=== PATIENT | male | born 1960 | race Caucasian/White ===

== ENCOUNTER 2023-12-19 07:13 | Inpatient (IN) | payer MEDICARE, MEDICAID ==
[~2023-12-19] VITALS: Ht 177.8 cm; Wt 65.0 kg
[2023-12-19 08:30] VITALS: BP 138/82; PULSE 79; TEMP 98.9
[2023-12-19] MEDS ORDERED: LIPITOR 10MG10 MG PO (08:43)
[2023-12-19] MEDS ORDERED: ZESTRIL 20MG TA20 MG PO (08:44)
[2023-12-19] MEDS ORDERED: NAMENDA5 MG PO (08:45)
[2023-12-19] MEDS ORDERED: ONE DAILY ESSE0.5 MG PO (08:47)
[2023-12-19] MEDS ORDERED: THIAMINE 1100 MG/TAB PO (08:47)
[2023-12-19] MEDS ORDERED: REMERON 15M15 MG/TA1 PO (08:55)
[2023-12-19] MEDS ORDERED: RISPERDAL 0.5M0.5 MG PO (08:55)
[2023-12-19] MEDS ORDERED: ANTI-DIARRHEAL2 MG PO (08:57)
[2023-12-19] MEDS ORDERED: ATIVAN 0.50.5 MG/TAB PO (08:59)
[2023-12-19] MEDS ORDERED: VALIUM 2MG T2 MG/TAB PO (08:59)
[2023-12-19] MEDS ORDERED: Acetaminophen 325 MG TAB PO PRN (09:00)
[2023-12-19] MEDS ORDERED: Ondansetron 4 MG/2 ML VIAL IV PRN (09:00)
[2023-12-19] MEDS ORDERED: Polyethylene Glycol 3350 17 GM PDS PO PRN (09:00)
[2023-12-19] MEDS ORDERED: GOOD NEIGH1200 MG/15 PO (09:00)
[2023-12-19] MEDS ORDERED: Docusate Sodium 100 MG CAP PO PRN (09:00)
[2023-12-19] MEDS ORDERED: TYLENOL 325MG325 MG PO (09:01)
[2023-12-19] MEDS ORDERED: LATUDA40 MG PO (09:10)
[2023-12-19] MEDS ORDERED: OLANZapine 2.5 MG,Water For Injection,Sterile 0.5 ML IM PRN (09:15)
--- NOTE | 2023-12-19 09:32 | NUR ---
Pt arrived to ICU 5 via EMS at 0808. Pt attached to critical care monitors. Pt is confused. He knows his name and states that he is in [place]. Pt does not answer any other questions. Pt is picking at lines, educated to leave alone, pt easily redirected at this time. Vital signs are stable. Exteranl male catheter placed. Pt placed in yellow gown and socks. Pt has abrasion to top of head and to bridge of nose. Bed alarm activated. Call light within reach. Will continue with POC.
[2023-12-19] MEDS ORDERED: LORazepam 0.5 MG TAB PO PRN (09:45)
[2023-12-19 10:46] LABS: URINE APPEARANCE CLEAR (CLEAR/HAZY); URINE BLOOD 3+ (NEGATIVE); URINE COLOR YELLOW (YELLOW); URINE GLUCOSE NEGATIVE (NEGATIVE); URINE KETONE 1+ (NEGATIVE); URINE NITRATE NEGATIVE (NEGATIVE); URINE PROTEIN(semi-quant) 1+ (NEGATIVE)
[2023-12-19 10:54] LABS: HEMATOCRIT 37.8 % (42.0-52.0); HEMOGLOBIN 14.3 g/dl (13.5-18.0); MEAN CELL VOLUME 83 fl (80.0-100.0); MEAN CORPUSCULAR HEMOGLOBIN 31 pg (27-31); MEAN CORPUSCULAR HGB CONC 38 g/dl (33.0-37.0); MEAN PLATELET VOLUME 9.1 fl (7.4-10.4); PLATELET COUNT 332 K/mm3 (130-400); RED BLOOD COUNT 4.57 M/mm3 (4.20-5.60)
[2023-12-19 11:07] LABS: ALBUMIN 4.1 g/dL (3.4-4.8); BILIRUBIN,TOTAL 1.7 mg/dL (0.2-1.2); CALCIUM 8.8 mg/dL (8.4-10.2); CREATININE, serum 0.85 mg/dL (0.72-1.25); MAGNESIUM 1.9 mg/dL (1.6-2.6); POTASSIUM 3.3 mEq/L (3.5-4.5); TOTAL PROTEIN 6.6 g/dl (6.2-8.1)
[2023-12-19 11:20] LABS: SQUAMOUS EPITHELIAL 0-2 /hpf (0-10); URINE BACTERIA OCCASIONAL /hpf (NONE SEEN)
[2023-12-19 11:21] LABS: COLLECTION METHOD CLEAN CATCH
[2023-12-19 12:00] VITALS: BP 122/85; PULSE 60; TEMP 98.8
[2023-12-19] MEDS ORDERED: NS 1,000 ML IV SCH (12:00)
[2023-12-19 12:10] LABS: CREATININE, serum 0.85 mg/dL (0.72-1.25)
[2023-12-19 12:30] LABS: FRACTIONAL EXCRETION OF NA+ 1.08 %
[2023-12-19] MEDS ORDERED: Cefepime 1 G in Water For Injection,Sterile 10 ML IV SCH (12:30)
[2023-12-19 12:41] LABS: BASOPHIL 1 % (0-2); EOSINOPHIL 1 % (0-4); LYMPHOCYTE 12 % (20.0-51.0); NEUTROPHILS 74 % (42.0-75.2); PLATELET ESTIMATE NORMAL (NORMAL)
[2023-12-19] MEDS ORDERED: Vancomycin 1.5 GM,Special Dose/Pharmacy Prepared 1.5 GM in NS 250 ML IV SCH (12:45)
[2023-12-19 13:45] LABS: CALCIUM 8.1 mg/dL (8.4-10.2); CREATININE, serum 0.76 mg/dL (0.72-1.25); POTASSIUM 3.2 mEq/L (3.5-4.5)
--- NOTE | 2023-12-19 15:17 | NUR ---
Pt is increasinly agitated and pulling at cathater, mitts were in place Per Dr. Aponte. Pt is yelling out and cussing. Removed cathater and removed mitts and pt calmed down a little, however he continues to yell out and remains very agitated. Pt maxed out on precedex. Notified Dr. Aponte who put in Ativan PRN orders.
[2023-12-19] MEDS ORDERED: LORazepam 2 MG/ML 1 ML VIAL IV PRN (15:30)
[2023-12-19 16:00] VITALS: BP 148/87; PULSE 84; TEMP 98.6
[2023-12-19] MEDS ORDERED: Potassium Bicarbonate/Citrate 20 MEQ Effervescent TAB PO SCH (17:00)
[2023-12-19] MEDS ORDERED: *Potassium Replacement Protocol MC SCH (17:00)
[2023-12-19 17:41] LABS: CALCIUM 7.9 mg/dL (8.4-10.2); CREATININE, serum 0.8 mg/dL (0.72-1.25); POTASSIUM 3.6 mEq/L (3.5-4.5)
[2023-12-19] MEDS ORDERED: Potassium Chloride 100 ML IV SCH (18:00)
[2023-12-19] MEDS ORDERED: Tolvaptan 15 MG TABLET PO ONE (18:15)
[2023-12-19 20:00] VITALS: BP 134/85; PULSE 88; TEMP 97.1
[2023-12-19] MEDS ORDERED: Multivitamin TAB PO SCH (21:00)
[2023-12-19] MEDS ORDERED: Atorvastatin 10 MG TAB PO SCH (21:00)
[2023-12-19] MEDS ORDERED: Mirtazapine 15 MG TAB PO SCH (21:00)
[2023-12-19] MEDS ORDERED: Memantine 5 MG TAB PO SCH (21:00)
[2023-12-19] MEDS ORDERED: Thiamine 100 MG TAB PO SCH (21:00)
[2023-12-19] MEDS ORDERED: Lisinopril 20 MG TAB PO SCH (21:00)
[2023-12-19 21:42] LABS: CALCIUM 8.2 mg/dL (8.4-10.2); CREATININE, serum 0.81 mg/dL (0.72-1.25); POTASSIUM 3.8 mEq/L (3.5-4.5)
--- NOTE | 2023-12-19 22:00 | NUR ---
PT HAS BEEN TO BE RESTLESS THIS SHIFT, MOVES SELF IN BED FREQUENTLY AND CONTINUOUS RAMBLING SPEECH. BOTH PIV'S TO R F/A FOUND TO BE LEAKING, REMOVED MORE PROXIMAL IV FIRST, HOWEVER POST REMOVAL THE SITE APPEARED TO BE INFLITRATING FROM THE MORE DISTAL IV. BOTH REMOVED WITH CATHETER TIP INTACT, GAUZE AND COBAN DRESSING PLACED. NEW 22G PIV PLACED TO L HAND AND SITE SECURED. PT HAD INCONTINENT EPISODE AT THIS TIME ALSO, CLEANED UP AND SHEETS CHANGED. PRECEDEX INFUSING AT CURRENT MAX DOSE OF 0.7 MCG/KG/HR. ATIVAN 1 MG IV ALSO GIVEN FOR PT'S CONTINUED RESTLESSNESS AND AGITATION. PT DOES NOT OPEN EYES EVEN WHEN AWAKE, HOWEVER IS SOMETIMES ABLE TO ANSWER QUESTION APPROPRIATELY ("ARE YOU HUNGRY? WOULD YOU LIKE WATER") AND STATES NAME. MOST OTHER SPEECH INCOHERENT, FROM REPORT THIS IS BASELINE MENTATION OF PT. BED ALARM SET AND FALL PRECAUTIONS IN PLACE.
[2023-12-20] VITALS: BP 114/50; PULSE 92; TEMP 97.2
[2023-12-20 01:37] LABS: CALCIUM 7.9 mg/dL (8.4-10.2); CREATININE, serum 0.74 mg/dL (0.72-1.25); POTASSIUM 3.6 mEq/L (3.5-4.5)
[2023-12-20 04:00] VITALS: PULSE 58; TEMP 97
[2023-12-20 06:36] LABS: ALBUMIN 3.3 g/dL (3.4-4.8); BILIRUBIN,TOTAL 1.7 mg/dL (0.2-1.2); CALCIUM 8.1 mg/dL (8.4-10.2); CREATININE, serum 0.74 mg/dL (0.72-1.25); POTASSIUM 3.8 mEq/L (3.5-4.5); TOTAL PROTEIN 5.7 g/dl (6.2-8.1)
[2023-12-20] MEDS ORDERED: NS 1,000 ML IV SCH (07:30)
[2023-12-20] MEDS ORDERED: Tolvaptan 15 MG TABLET PO ONE (07:30)
[2023-12-20] MEDS ORDERED: Potassium Bicarbonate/Citrate 20 MEQ Effervescent TAB PO ONE (07:30)
[2023-12-20 08:00] VITALS: BP 112/82; PULSE 80; TEMP 98.7
[2023-12-20] MEDS ORDERED: Folic Acid 1 MG TAB PO SCH (09:00)
--- NOTE | 2023-12-20 09:22 | NUR ---
SW attempted to meet with patient in ICU. Lab in process of getting blood with three ICU RNs holding patient. Patient being verbally aggressive toward staff. SW called patient's sister/DPOA Vanesa Vu ([phone]) to complete assessment. She reports that patient has been at [facility] for one month and has had [facility] approving him for permanent placement in unit. Patient sees Dr. Merle Schultz at the facility as his PCP and was scheduled to see her for his first appointment this week. Facility uses [facility]. Patient does not utilize any DME but does require assistance with showering, dressing, and redirection. Patient's alternate used car salesperson is Patel Hernandez, nephew, ([phone]). Sister reports that alternate DPOA is patient's niece Richard Lopez but she has been estranged from family for over two years. Plan is for patient to be returned to [facility] at discharge. Clinical updates faxed to [facility] by STEPHANIE. Discharge plan: [facility]
[2023-12-20] MEDS ORDERED: LORazepam 2 MG/ML 1 ML VIAL IV ONE ×2 (09:30→11:15)
--- NOTE | 2023-12-20 09:34 | NUR ---
[facility] REPORT TAKEN FROM OFF CRISTINA EMILY MONZON. AT THIS ASSESMENT PT IN BED WITH EYES CLOSED. PT AAOX0 BUT WILL RESPOND TO VOICE. PT CONTINUALY SWEARS AT STAFF WITH THE ONLY COHERANT WORDS BEING " YOU FUCKERS" AND " YOU COCLSUCKER" PT WILL NOT FOLLOW COMMANDS OR CPMP[THIAGO MARINO ASSESMENT. PUPALS 2MM AND SLUGISH. PT MOVES OWN EXTRMITIES BUT WILL NOT FOLLOW SIMPLE COMMANDS. CARDIAC ASSESMENT SHOWS NSR WITH HEAR RATE IN THE LOW 80'S. PATIENT PWD WITH CAP REFIL LESS THAN 3 SECONDS. LUNG SOUNDS CLEAR SLIGHTLY DININISHED IN THE LOWER LOBES. SKINN ASSESMENT SHOWS SLIGHT DRUSING ON ARMS AND SCATTERS OTHER BRUSING. NO SKIN BREAKDOWN NOTED. GI A SSESMENT SHOWS NO DEFICITS. ASSESMENT SHOWS NO DEFICITS. HEENT SHOWS [place] TEETS AND POOR ORAL HYFNE. SOCAILY NO ONE IS AT BESIDE
[2023-12-20 11:20] LABS: CALCIUM 6.7 mg/dL (8.4-10.2); CREATININE, serum 0.63 mg/dL (0.72-1.25); POTASSIUM 3.1 mEq/L (3.5-4.5)
[2023-12-20 12:00] VITALS: BP 136/95; PULSE 76; TEMP 97.1
[2023-12-20] MEDS ORDERED: Potassium Chloride 100 ML IV SCH (12:45)
[2023-12-20 12:54] LABS: BASO % 0.2 % (0.0-2.0); EOS % 0.2 % (0.0-4.0); GRAN # 10.9 K/mm3 (1.4-6.5); GRAN % 82.9 % (42.2-75.2); LYMPH % 7.7 % (20.0-51.0); MEAN CELL VOLUME 84 fl (80.0-100.0); MEAN CORPUSCULAR HGB CONC 37 g/dl (33.0-37.0); MONO # 1.1 K/mm3 (0.1-0.6); MONO % 8.1 % (1.7-9.3); RED BLOOD COUNT 3.77 M/mm3 (4.20-5.60)
[2023-12-20 13:02] LABS: HEMOGLOBIN 11.8 g/dl (13.5-18.0); MEAN CORPUSCULAR HEMOGLOBIN 31 pg (27-31)
[2023-12-20 13:03] LABS: HEMATOCRIT 31.6 % (42.0-52.0); PLATELET COUNT 211 K/mm3 (130-400)
[2023-12-20 13:09] LABS: CALCIUM 6.8 mg/dL (8.4-10.2); CREATININE, serum 0.64 mg/dL (0.72-1.25); POTASSIUM 3.1 mEq/L (3.5-4.5)
[2023-12-20 16:00] VITALS: BP 128/54; PULSE 56; TEMP 98.6
[2023-12-20 17:22] LABS: CREATININE, serum 0.78 mg/dL (0.72-1.25); POTASSIUM 4.5 mEq/L (3.5-4.5)
[2023-12-20] MEDS ORDERED: D5W 1,000 ML IV SCH (18:00)
[2023-12-20 20:00] VITALS: BP 98/54; PULSE 64; TEMP 97.5
[2023-12-20 21:23] LABS: CALCIUM 8.2 mg/dL (8.4-10.2); CREATININE, serum 0.89 mg/dL (0.72-1.25); POTASSIUM 3.8 mEq/L (3.5-4.5)
--- NOTE | 2023-12-20 23:30 | NUR ---
PATIENT SHOWS AGITATION BETWEEN RESTING PERIODS, DOES NOT FOLLOW COMMANDS, AND DOES NOT RESPOND APPROPRIATELY TO QUESTIONS BEING ASKED. PT IS EASILY REDIRECTED IN MOMENTS OF AGITATION. PATIENT HAS HAD MULTIPLE EPISODES OF URINARY INCONTINENCE THROUGHOUT THE NIGHT. THIS NURSE PLACED A CONDOM CATHETER AND THIS DID NOT BOTHER THE PATIENT. BED IS IN LOWEST POSITION, BED ALARMS ON.
[2023-12-21] VITALS (9 sets, daily range): BP systolic 113–172; BP diastolic 59–156; PULSE 54–112; TEMP 97.1–98.1
[2023-12-21 02:25] LABS: CALCIUM 8.3 mg/dL (8.4-10.2); CREATININE, serum 0.85 mg/dL (0.72-1.25)
[2023-12-21] MEDS ORDERED: D5W 1,000 ML IV SCH (03:00)
[2023-12-21 06:08] LABS: CALCIUM 8.8 mg/dL (8.4-10.2)
[2023-12-21 06:31] LABS: BASO % 0.1 % (0.0-2.0); EOS % 0.3 % (0.0-4.0); GRAN # 9.1 K/mm3 (1.4-6.5); HEMATOCRIT 37.1 % (42.0-52.0); HEMOGLOBIN 13.6 g/dl (13.5-18.0); LYMPH # 0.7 K/mm3 (1.2-3.4); MEAN CELL VOLUME 85 fl (80.0-100.0); MEAN CORPUSCULAR HEMOGLOBIN 31 pg (27-31); MEAN CORPUSCULAR HGB CONC 37 g/dl (33.0-37.0); MEAN PLATELET VOLUME 9.4 fl (7.4-10.4); MONO # 0.9 K/mm3 (0.1-0.6); PLATELET COUNT 247 K/mm3 (130-400); RED BLOOD COUNT 4.36 M/mm3 (4.20-5.60); REDCELL DISTRIBUTION WIDTH-CV 11.2 % (11.5-14.5)
[2023-12-21 06:42] LABS: ALBUMIN 3.3 g/dL (3.4-4.8); BILIRUBIN,TOTAL 0.7 mg/dL (0.2-1.2); TOTAL PROTEIN 6.1 g/dl (6.2-8.1)
--- NOTE | 2023-12-21 07:53 | NUR ---
PT IS LYING IN BED, EYES CLOSED. HE IS A LITTLE RESTLESS, TRYING TO REACH HIS COVERS AND HAS THE IV TUBING WRAPPED AROUND HIS HAND. GAVE HIM A WARM BLANKET AND UNWRAPPED THE IV TUBBING. HE HAS A PICC LINE WITH D5W AND PRECEDEX INFUSING. PT HAS A CONDOM CATHETER AT THIS TIME. SEEMS TO HAVE SETTLED OF NOW.
[2023-12-21 09:57] LABS: CALCIUM 8.5 mg/dL (8.4-10.2); CREATININE, serum 0.87 mg/dL (0.72-1.25); POTASSIUM 3.7 mEq/L (3.5-4.5)
--- NOTE | 2023-12-21 11:04 | NUR ---
PT IS RESPONSIVE TO VOICE. HE WILL TELL ME HIS NAME. HE WILL NOT OPEN HIS EYES. WHEN ASKED IF HE WAS HUNGRY HE STATED YES AND HE AGREED TO SOME APPLESAUCE. WHEN I ATTEMPTED TO GIVE SOME APPLESAUCE HE BECAME AGITATED AND SAID TO STOP HE DIDN'T WANT ANY.
--- NOTE | 2023-12-21 12:41 | NUR ---
Hog Dropper contacted Erinn at [facility] and faxed clinical updates. Erinn sent STEPHANIE a copy of DPOA-HC which STEPHANIE placed on chart. Primary agent is sister, Vanesa.
[2023-12-21 13:43] LABS: CALCIUM 8.4 mg/dL (8.4-10.2); CREATININE, serum 0.8 mg/dL (0.72-1.25); POTASSIUM 3.5 mEq/L (3.5-4.5)
[2023-12-21 17:29] LABS: CALCIUM 8.3 mg/dL (8.4-10.2); CREATININE, serum 0.85 mg/dL (0.72-1.25)
--- NOTE | 2023-12-21 20:54 | NUR ---
PT IS A CHALLENGE TO ASSESS. HE DID OPEN HIS EYES BRIEFLY, BUT NOT TO COMMAND. PT WILL NOT FOLLOW COMMANDS. PT REPOSITIONS SELF AND MOVES ALL EXTREMITIES. PT WOULD ONLY ANSWER ME WHEN I ASKED HIM IF THE HAD TO URINATE. PT STATED NO. PT CURSES RANDOMLY. MAKES RANDOM STATEMENTS OUT OF CONTEXT. PT DID BECOME LESS AGGITATED AFTER ATIVAN. I ASKED TERRI IF HE WOULD TAKE HIS PILLS. HE WOULD NOT OPEN HIS EYES OR ANSWER ME.
[2023-12-21 21:48] LABS: CALCIUM 8.9 mg/dL (8.4-10.2); CREATININE, serum 0.95 mg/dL (0.72-1.25); POTASSIUM 3.6 mEq/L (3.5-4.5)
[2023-12-22] VITALS (11 sets, daily range): BP systolic 106–178; BP diastolic 64–87; PULSE 58–133; TEMP 97.4–97.8
[2023-12-22] MEDS ORDERED: Potassium Chloride 100 ML IV SCH ×2 (00:45→10:00)
[2023-12-22 01:38] LABS: CALCIUM 8.6 mg/dL (8.4-10.2); CREATININE, serum 0.94 mg/dL (0.72-1.25); POTASSIUM 3.6 mEq/L (3.5-4.5)
[2023-12-22 06:38] LABS: BASO % 0.3 % (0.0-2.0); EOS # 0.1 K/mm3 (0.0-0.7); GRAN # 8.2 K/mm3 (1.4-6.5); GRAN % 78.8 % (42.2-75.2); HEMOGLOBIN 12.2 g/dl (13.5-18.0); LYMPH % 9.3 % (20.0-51.0); MEAN CELL VOLUME 85 fl (80.0-100.0); MEAN CORPUSCULAR HEMOGLOBIN 31 pg (27-31); MEAN CORPUSCULAR HGB CONC 37 g/dl (33.0-37.0); MEAN PLATELET VOLUME 9.1 fl (7.4-10.4); PLATELET COUNT 259 K/mm3 (130-400); RED BLOOD COUNT 3.91 M/mm3 (4.20-5.60); REDCELL DISTRIBUTION WIDTH-CV 11.4 % (11.5-14.5)
[2023-12-22 06:47] LABS: HEMATOCRIT 33.2 % (42.0-52.0)
[2023-12-22 07:02] LABS: CALCIUM 8.5 mg/dL (8.4-10.2); CREATININE, serum 0.85 mg/dL (0.72-1.25); POTASSIUM 3.9 mEq/L (3.5-4.5)
--- NOTE | 2023-12-22 08:22 | NUR ---
PT STABLE ON ROUNDS OVERNIGHT. PRECEDEX WEANED TO 0.2 MCG/KG/HR. PT WAS GIVING ATIVAN IV TO HELP CONTROL AGGITATION. PT HAS OUT BURST OF CURSING AT TIME. PT WAS NOT PHYSICALLY AGGRESSIVE. PT'S RESPONSIVENESS VARIES FROM NONE TO ANSWERING SIMPLE QUESTIONS APPROPRIATELY. INCONTINENT OF URINE. PT DID DRINK SOME FLUID FOR ME. STABLE AT THIS TIME. NO SIGN OF DISTRESS AT THIS TIME.
[2023-12-22] MEDS ORDERED: NS 1,000 ML IV SCH (09:15)
[2023-12-22 09:21] LABS: BILIRUBIN,TOTAL 0.5 mg/dL (0.2-1.2); CALCIUM 8.6 mg/dL (8.4-10.2); CREATININE, serum 0.87 mg/dL (0.72-1.25); POTASSIUM 3.9 mEq/L (3.5-4.5); TOTAL PROTEIN 5.7 g/dl (6.2-8.1)
[2023-12-22 09:41] LABS: CALCIUM 8.6 mg/dL (8.4-10.2); CREATININE, serum 0.86 mg/dL (0.72-1.25); POTASSIUM 3.7 mEq/L (3.5-4.5)
[2023-12-22] MEDS ORDERED: LORazepam 2 MG/ML 1 ML VIAL IV PRN (11:00)
--- NOTE | 2023-12-22 13:14 | NUR ---
PT'S SISTER AT BEDSIDE, DISCUSSED POC. PT WILL GO TO MRI AT 1400. PT HAS BEEN VARYING FROM BEING CALM AND ALERT TO VERY LOUD AND AGITATED TODAY. THIS RN HAS GENERALLY BEEN ABLE TO RESETTLE PT AFTER REORIENTING AND CHECKING NEEDS. HAS ASSISTED PT TO USE URINAL X 3, NO EPISODES OF INCONTINENCE THIS SHIFT. ASSISTED PT WITH MEALS, HAS EATEN APPROX 50% AND ENJOYS ORANGE JUICE. PT'S SHORT TERM MEMORY IS LIMITED, NEEDING REDIRECTION OFTEN. PRECEDEX DRIP HAS BEEN OFF SINCE 0900, ATIVAN ADMINISTERED PER PRN DOSING NEEDED.
[2023-12-22 13:30] LABS: CALCIUM 8.8 mg/dL (8.4-10.2); CREATININE, serum 0.85 mg/dL (0.72-1.25); POTASSIUM 4.6 mEq/L (3.5-4.5)
[2023-12-22] MEDS ORDERED: LORazepam 2 MG/ML 1 ML VIAL IV ONE (13:45)
--- NOTE | 2023-12-22 13:47 | NUR ---
PT TO MRI, ATIVAN 1 MG IV GIVEN PRIOR TO TRANSPORT PER DR. MUSTAFA.
--- NOTE | 2023-12-22 16:27 | NUR ---
Pattern Technician faxed clinical updates to [facility].
[2023-12-22] MEDS ORDERED: amLODIPine 10 MG TAB PO SCH (16:45)
[2023-12-22 17:37] LABS: CALCIUM 8.8 mg/dL (8.4-10.2); CREATININE, serum 0.87 mg/dL (0.72-1.25); POTASSIUM 4.2 mEq/L (3.5-4.5)
--- NOTE | 2023-12-22 18:25 | NUR ---
REPORTED PT'S ELEVATED HR AND BP TO MILDRED SIEGEL APRN. UNAFFECTED BY RECENT ATIVAN DOSE. ORDERS RECEIVED.
[2023-12-22] MEDS ORDERED: Metoprolol Tartrate 5 MG/5 ML VIAL IV ONE (18:30)
[2023-12-22] MEDS ORDERED: Atorvastatin 40 MG TAB PO SCH (21:00)
[2023-12-22] MEDS ORDERED: Atorvastatin 20 MG TAB PO SCH (21:00)
[2023-12-22 21:51] LABS: CALCIUM 8.9 mg/dL (8.4-10.2); CREATININE, serum 0.97 mg/dL (0.72-1.25); POTASSIUM 4.1 mEq/L (3.5-4.5)
[2023-12-23] VITALS: BP 173/94; PULSE 92; TEMP 97.4
--- NOTE | 2023-12-23 01:07 | NUR ---
PT MORE ALERT TONIGHT. STILL HAS OUT BURST OF YELLING AND CURSING. EMILY MONZON DAY SHIFT, STATES HIS SISTER VISITED TODAY. SISTER STATES PT DOES NOT SEE WELL AND NEEDS GLASSES. STATES HE CAN NOT SEE HIS FOOD TO FEED HIMSELF. PT IS A FEEDER AND WOULD REQUIRE A SISTER FOR SAFETY TO GO TO THE FLOOR. PT HAS FLOOR ORDERS.
[2023-12-23 01:34] LABS: CALCIUM 8.8 mg/dL (8.4-10.2); CREATININE, serum 0.85 mg/dL (0.72-1.25); POTASSIUM 3.7 mEq/L (3.5-4.5)
[2023-12-23 04:00] VITALS: BP 142/96; PULSE 97; TEMP 98.4
--- NOTE | 2023-12-23 05:11 | NUR ---
PT HAS HISTORY OF WERNICKE ENCEPHALOPATHY. PT IS LABILE IN COGNITION, ALERTNESS, BEHAVIOR. CONSISTANT WITH DISEASE PROCESS. MRI PERFORMED 12/21 SHOWED NO ACUTE FINDINGS. SODIUM IS STABLE AT 133-135. PT MAY BENEFIT FROM STOPPING THE EVERY 2 HOUR NEURO CHECKS. NO SEIZURE ACTIVITY NOTED SINCE ADMISSION. ATIVAN IS HELPING WITH PATIENTS OUTBURST AND AGGITATION. WHEN PT BECOMES AGITATED IT IS USUALLY BECAUSE HE NEEDS TO URINATE, HAVE A BM, IS HUNGRY OR THIRSTY. PER REPORT FROM PATIENTS SISTER TO DAY SHIFT RN, PT HAS TROUBLE SEEING. WHEN I ASKED THE PATIENT IF HE COULD SEE, HE STATED YES. I HELD UP 2 FINGERS. I ASKED THE PATIENT HOW MANY FINGERS HE SAW. PT ANSWERED 2. STABLE ON ROUNDS. NO SIGN OF DISTRESS AT THIS TIME. CONTINUE WITH PLAN OF CARE.
[2023-12-23 06:01] LABS: CALCIUM 9.2 mg/dL (8.4-10.2); CREATININE, serum 0.88 mg/dL (0.72-1.25); POTASSIUM 3.9 mEq/L (3.5-4.5)
--- NOTE | 2023-12-23 07:15 | NUR ---
Report received from Estela Castillo RN; patient currently resting in bed with eyes closed. Patient received a dose of Ativan at approx 0600 and has been resting since then. Patient's vital signs are within normal limits this morning, with the exception of blood pressure, which has been slightly hypertensive with systolics in the 140s-160s.
[2023-12-23 08:00] VITALS: BP 160/82; PULSE 64
[2023-12-23 09:55] LABS: CALCIUM 9.2 mg/dL (8.4-10.2); CREATININE, serum 0.86 mg/dL (0.72-1.25); POTASSIUM 4.1 mEq/L (3.5-4.5)
[2023-12-23] MEDS ORDERED: LIPITOR20 MG PO (11:51)
[2023-12-23] MEDS ORDERED: NORVASC 10MG10 MG PO (11:51)
[2023-12-23] MEDS ORDERED: FOLIC ACID 11 MG/TA1 PO (11:51)
--- NOTE | 2023-12-23 13:32 | NUR ---
Reported off to Willa at [facility] in [place]; patient picked up by [facility] for transport back to [facility]. Patient's only possessions were a few articles of clothing that were sent with EMS. Patient's discharge packet was sent with EMS as well; when speaking with Willa, this nurse explained that there were orders in there for repeat labs in one week, as well as the discharge summary and discharge instructions. Patient alert upon transfer but not completely oriented; patient was only oriented to self. Patient asked about his glasses, however, this morning when speaking with the patient's sister, Vanesa, she had stated that they were left at [facility] and that they are looking for them; glasses were never here. This nurse called Vanesa to let her know he was on his way back to [place] via EMS. Told Willa to call this nurse if she had any other questions after patient arrived.
--- NOTE | 2023-12-23 14:45 | NUR ---
Rollway Man contacted Erinn at [facility] and faxed clinical updates. STEPHANIE advised patient is ready for discharge. Erinn informed SW they can accept but have no transportation. STEPHANIE spoke with Director who approved the hospital being billed for EMS transport. STEPHANIE contacted [facility] and scheduled transport. STEPHANIE provided letter signed by Director approving billing. STEPHANIE faxed discharge orders to Erinn at [facility]. STEPHANIE contacted patient's sister/DPOA Vanesa to review IM form over the phone. Vanesa verbalized understanding and was agreeable to discharge back to [facility] today. Discharge Plan; [facility]
== END 2023-12-23 13:05 | disposition home or self-care (01) | DRG 640 ==
LOC: IMCU 07:13 → ICU 08:28
PROVIDERS: Nurse Practitioner Family; ADMIT Hospitalist
PROC: 02HV33Z Insertion of Infusion Device into Superior Vena Cava, Percutaneous Approach (ICD-10-PCS; principal; 2023-12-20)
DX: E87.1 Hypo-osmolality and hyponatremia (principal); G93.41 Metabolic encephalopathy; R65.10 Systemic inflammatory response syndrome (SIRS) of non-infectious origin without acute organ dysfunction; G40.509 Epileptic seizures related to external causes, not intractable, without status epilepticus; M62.82 Rhabdomyolysis; E80.6 Other disorders of bilirubin metabolism; E87.6 Hypokalemia; E78.5 Hyperlipidemia, unspecified; F10.26 Alcohol dependence with alcohol-induced persisting amnestic disorder; F91.9 Conduct disorder, unspecified; T50.995A Adverse effect of other drugs, medicaments and biological substances, initial encounter; G30.9 Alzheimer's disease, unspecified; F02.80 Dementia in other diseases classified elsewhere, unspecified severity, without behavioral disturbance, psychotic disturbance, mood disturbance, and anxiety; F31.9 Bipolar disorder, unspecified; I10 Essential (primary) hypertension; F42.9 Obsessive-compulsive disorder, unspecified; Z83.6 Family history of other diseases of the respiratory system; Z82.0 Family history of epilepsy and other diseases of the nervous system; Z79.899 Other long term (current) drug therapy; Z79.02 Long term (current) use of antithrombotics/antiplatelets; Z79.84 Long term (current) use of oral hypoglycemic drugs; Z79.83 Long term (current) use of bisphosphonates; Z88.8 Allergy status to other drugs, medicaments and biological substances; Z90.89 Acquired absence of other organs; Z88.0 Allergy status to penicillin; Z87.820 Personal history of traumatic brain injury
CPT/HCPCS: A4314; C1751; J0692; J1650; J2060; J3370; J3411; J3480; J7030; J7050; J7070; Q3014